=== PATIENT | female | born 1970 | race Hispanic/Latino ===

== ENCOUNTER 2017-11-09 08:20 | Day surgery (SDC) | payer BC ==
[2017-11-07 10:23] VITALS: BMI 52.4
[2017-11-09] MEDS ORDERED: Propofol 10 mg/ml Inj (20 ML) ONE (08:33)
[2017-11-09] MEDS ORDERED: Sodium Chloride 0.9% 1,000 ML IV SCH (09:30)
[2017-11-09 10:09] VITALS: BP 128/75; PULSE 89; RESP 18; TEMP 97.6; O2SAT 96
== END 2017-11-09 10:32 | disposition home or self-care (01) ==
LOC: ENDO 08:20
PROVIDERS: ATTEND Specialist
DX: Z01.818 Encounter for other preprocedural examination (principal); K21.0 Gastro-esophageal reflux disease with esophagitis; K25.9 Gastric ulcer, unspecified as acute or chronic, without hemorrhage or perforation; E66.01 Morbid (severe) obesity due to excess calories; I10 Essential (primary) hypertension; E03.9 Hypothyroidism, unspecified; E78.1 Pure hyperglyceridemia; E11.610 Type 2 diabetes mellitus with diabetic neuropathic arthropathy; Z68.43 Body mass index [BMI] 50.0-59.9, adult; K29.50 Unspecified chronic gastritis without bleeding
CPT/HCPCS: 43239; 82948; 84703; 88305; 88312; 88342; J2704; J7030; J7040